=== PATIENT | female | born 2000 | race Caucasian/White ===

== ENCOUNTER 2021-11-01 15:39 | Emergency (ER) | payer OTHER, SELFPAY | END 2021-11-01 15:50 | disposition left against medical advice (07) | PROVIDERS: Emergency Provider Internal Medicine Hematology & Oncology; PCP Pediatrics | DX: Z53.21 Procedure and treatment not carried out due to patient leaving prior to being seen by health care provider (principal) | CPT/HCPCS: 99199 ==

== ENCOUNTER 2021-11-05 11:05 | Emergency (ER) | payer OTHER, SELFPAY ==
[2021-11-05 11:48] VITALS: BP 119/64; PULSE 63; RESP 16; TEMP 36.8; O2SAT 99
--- NOTE | 2021-11-05 12:47 | ED.FEMALEGU ---
HPI - Female Genitourinary General Chief complaint: Urogenital-Female Stated complaint: uti Time Seen by Provider: 11/05/21 12:40 Source: patient and RN notes reviewed Mode of arrival: ambulatory Limitations: no limitations History of Present Illness HPI Narrative: Patient presents today complaining of urinary urgency and burning. She previously saw her PCP who did a UA and urine culture. The urine culture came back negative for infection and patient was referred to see her [facility] a few days ago. Patient did not call now the office is closed for [place] and patient wanted to come here for further evaluation. Denies any additional symptoms to include external vaginal swelling, erythema, discharge, hematuria. Denies concerns for STDs. Related Data Allergies Allergy/AdvReac Type Severity Reaction Status Date / Time No Known Allergies Allergy Unknown Unverified 12/03/12 11:53 Review of Systems Review of Systems: CONSTITUTIONAL: Denies body aches, fever, chills, or sweats. EYES: Denies visual changes, redness, or discharge. ENT: Denies rhinorrhea, congestion, sore throat, or otalgia. CARDIOVASCULAR: Denies chest pain, palpitations, or edema. RESPIRATORY: Denies cough or dyspnea. GASTROINTESTINAL: Denies abdominal pain, nausea, vomiting, or diarrhea. GENITOURINARY: + Dysuria, urgency SKIN: Denies rash, itching, or wounds. MUSCULOSKELETAL: Denies back pain, joint pain, or myalgia. NEUROLOGIC: Denies headache, numbness, tingling, or weakness. PSYCH: Denies depression or anxiety. PMFSH Comments At time of signature, I have reviewed and agree with nursing past medical, surgical, social and family history unless otherwise noted. Please see nursing chart for further information. There is no relevant family history pertinent to the presenting complaint Exam Narrative: GENERAL: Well-appearing, well-nourished, and in no acute distress. HEAD: Normocephalic, atraumatic. EYES: EOMI. No redness or drainage. Conjunctivae normal. ENT: Mucous membranes pink and moist. NECK: Normal AROM. CHEST: No respiratory distress. Clear to auscultation. HEART: Regular rate and rhythm. No murmur appreciated. Normal peripheral pulses. ABDOMEN: Soft, nontender, nondistended, normal active bowel sounds. EXTREMITIES: Normal range of motion. No edema. SKIN: Warm, dry, no rash. Capillary refill normal. Normal skin turgor. NEURO: No focal deficits. Alert and oriented x3. Gait steady. PSYCH: Normal affect. No signs of depression or anxiety. Course Course Emergency Course: Patient will be referred to follow-up with her [facility] [facility]PERATOR or urologist for further evaluation. Vital Signs Vital signs: Vital Signs Temperature 98.3 F 11/05/21 11:48 Pulse Rate 63 11/05/21 11:48 Respiratory Rate 16 11/05/21 11:48 Blood Pressure 119/64 11/05/21 11:48 Pulse Oximetry 99 11/05/21 11:48 Temperature 98.3 F 11/05/21 11:48 Pulse Rate 63 11/05/21 11:48 Respiratory Rate 16 11/05/21 11:48 Blood Pressure 119/64 11/05/21 11:48 Pulse Oximetry 99 11/05/21 11:48 Reviewed MDM - Female Genitourinary Differential Diagnosis Differential diagnosis: Likely other (Interstitial cystitis, PID) Critical Care Time Critical Care Time Critical Care Time: No Discharge Plan Discharge Clinical Impression: Urinary urgency, Dysuria Patient Disposition: Home, Self-Care Condition: Stable Additional Instructions: Please follow-up with your [facility] OPERATOR or urologist for further evaluation of your symptoms. Make sure you are drinking plenty of water as well. Patient Language: [place] Follow-up/Referrals: Astrid Díaz MD [Primary Care Provider] - Cong Barclay MD [Physician] - Time of Disposition: 12:51
== END 2021-11-05 12:55 | disposition home or self-care (01) ==
PROVIDERS: Emergency Provider Nurse Practitioner; PCP Pediatrics
DX: R30.0 Dysuria (principal); R39.15 Urgency of urination
CPT/HCPCS: 99211; G0463

== ENCOUNTER → 2023-02-17 15:23 | Outpatient (CLI) | payer OTHER, SELFPAY ==
--- NOTE | ~2023-02-17 | XR_ITS ---
XR thoracic spine 2V DATE: 02/17/2023 15:47 INDICATION: Thoracic back pain TECHNIQUE: AP, lateral, swimmer views COMPARISON: None FINDINGS: There is moderate degenerative disc disease at T10-11. No fracture or dislocation or bone destruction. The thoracic pedicles are intact. No paraspinal soft tissue thickening. IMPRESSION: Moderate degenerative disc disease at T10-11 Reviewed, dictated and finalized at location A.
--- NOTE | ~2023-02-17 | XR_ITS ---
XR lumbar spine 2-3V DATE: 02/17/2023 15:48 INDICATION: Low back pain TECHNIQUE: AP, lateral, coned lateral lumbosacral views COMPARISON: None FINDINGS: Normal alignment. No fracture or bone destruction or spondylolisthesis. Included lower thor acic and lumbar pedicles are intact. Lumbosacral interspaces are well preserved. Sacroiliac joints ar e intact. IMPRESSION: Negative Reviewed, dictated and finalized at location A. IMPRESSION: Negative
== END ==
PROVIDERS: PCP Nurse Practitioner Family; Visit Provider Nurse Practitioner Family
DX: M54.50 Low back pain, unspecified (principal); M51.34 Other intervertebral disc degeneration, thoracic region
CPT/HCPCS: 72070; 72100